=== PATIENT | female | born 1965 | race African-American/Black ===

== ENCOUNTER 2018-07-17 14:06 | Emergency (ER) | payer OTHER ==
[~2018-07-17] VITALS: Ht 160 cm; Wt 70.0 kg
[2018-07-17] MEDS ORDERED: IBUPROFEN 600MG TABLET PO ONE (18:30)
[2018-07-17 19:04] VITALS: BP 194/121
== END 2018-07-17 19:05 | disposition home or self-care (01) ==
LOC: ER 14:35
DX: S93.492A Sprain of other ligament of left ankle, initial encounter (principal); S90.812A Abrasion, left foot, initial encounter; I10 Essential (primary) hypertension; W01.0XXA Fall on same level from slipping, tripping and stumbling without subsequent striking against object, initial encounter; Y93.89 Activity, other specified; Y92.89 Other specified places as the place of occurrence of the external cause; Z90.710 Acquired absence of both cervix and uterus; Z88.0 Allergy status to penicillin
CPT/HCPCS: 73610; 73630; 99283